=== PATIENT | male | born 1965 | race American Indian/Alaskan Native ===

== ENCOUNTER 2017-08-24 10:40 | Emergency (ER) | payer SELFPAY ==
--- NOTE | 2017-08-24 11:54 | Emergency Department Report ---
Chief Complaint: Dyspnea/Respdistress Stated Complaint: BOWEL OBSTRUCTION/PEDAL EDMA - HPI History of Present Illness: 52-year-old male presents with multiple complaints that include chest pain, shortness of breath, lower extremity swelling, abdominal pain with constipation. He has a history of hypertension, CHF. CHF diagnosed at [facility] in April but patient says he does not have any medications or follow-up. The chest pain, shortness of breath and edema have been going on since April or May "all day every day." He is a tobacco smoker. No PCP. - ROS Review of Systems: Review of systems: Patient is positive for chest pain, shortness of breath, lower extremity edema, abdominal discomfort/distention, constipation Patient is negative for fever, nausea, vomiting, back pain, diaphoresis. - Exam Vital Signs: Vital Signs 08/24/17 10:49 Temperature 97.5 F L Pulse Rate 95 H Respiratory 18 Rate Blood Pressure 131/74 O2 Sat by Pulse 95 Oximetry Physical Exam: Patient is calm. AAO x 3. Slightly coarse breath sounds but no tachypnea or accessory muscle use. Heart sounds normal Has visible 2-3+ pitting edema. Skin is warm and dry. No focal neurological deficits. MSE screening note: Focused history and physical exam performed. Due to findings the following was ordered: I ordered a CBC, CMP, serial troponins, BNP, coags, x-ray of the abdomen and chest, and EKG. The patient will need to be seen on the main ED side. ED Disposition for MSE Condition: Stable
--- NOTE | 2017-08-24 12:44 | XRay Report ---
ABDOMINAL SERIES: History: Abdominal pain, chest pain. Erect chest film demonstrates mild cardiomegaly and borderline pulmonary vascularity. The lungs are clear. There is no evidence of free air beneath the diaphragms. The gas pattern within the abdomen is unremarkable. There is no evidence of bowel dilatation, significant air-fluid levels, or masses. Organ shadows are unremarkable. IMPRESSION: Mild cardiomegaly. Unremarkable abdomen.
[2017-08-24 13:34] LABS: Basophils % (Auto) 0.4 % (0.0-1.8); Eosinophils # (Auto) 0.4 K/mm3 (0.0-0.4); Eosinophils % (Auto) 6.3 % (0.0-4.3); Hematocrit 42.4 % (35.5-45.6); Hemoglobin 13.4 gm/dl (11.8-15.2); Lymphocytes # (Auto) 1.8 K/mm3 (1.2-5.4); Lymphocytes % (Auto) 29.3 % (13.4-35.0); Mean Corpuscular HGB Conc 32 % (32-34); Mean Corpuscular Hemoglobin 27 pg (28-32); Mean Corpuscular Volume 85 fl (84-94); Monocytes # (Auto) 0.5 K/mm3 (0.0-0.8); Monocytes % (Auto) 7.4 % (0.0-7.3); Platelet Count 187 K/mm3 (140-440); Red Blood Count 4.98 M/mm3 (3.65-5.03); Red Cell Distribution Width 16.9 % (13.2-15.2)
[2017-08-24 13:50] LABS: INR 1.14 (0.87-1.13)
[2017-08-24 13:51] LABS: Partial Thromboplastin Time 32.7 Sec. (24.2-36.6)
[2017-08-24 13:55] LABS: Alanine Aminotransferase 15 units/L (7-56); Albumin 3.9 g/dL (3.9-5); BUN/Creatinine Ratio 24; Blood Urea Nitrogen 19 mg/dL (9-20); Hemolysis Index 13
[2017-08-24] MEDS ORDERED: LASIX IV ONE (15:24)
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
--- NOTE | 2017-08-24 16:26 | History and Physical Report ---
History of Present Illness Chief complaint: My legs are swollen History of present illness: 52 YO Male with HTN, HLD, CHF Unknown EF, Nicotine Dependence, Medication Noncompliance, Dietary noncompliance presents to ED for evaluation. Pt seen and evaluated in ED and found have CHF chronic BLE edema. Pt seen and evaluated in ED and treated with diuresis with improvement in symptoms. Pt found to have elevaated D Dimer but CTA chest was negative. Pt counseled regarding medicaton noncompliance, and dietary compliance, daily weight monitoring. Pt medically optimized and discharged home. Pt instructed to f/u pcp 1wk, cardiology 1wk. Past History Past Medical History: heart failure, hypertension, hyperlipidemia Past Surgical History: bowel surgery Social history: single, smoking Family history: diabetes, hypertension Medications and Allergies Allergies Allergy/AdvReac Type Severity Reaction Status Date / Time No Known Allergies Allergy Unverified 08/24/17 10:48 Home Medications Medication Instructions Recorded Confirmed Last Taken Type Amlodipine Besylate 10 mg PO ONCE 08/24/17 08/24/17 Unknown History Aspirin 325 mg PO ONCE 08/24/17 08/24/17 Unknown History Furosemide [Lasix] 20 mg PO QDAY #30 tablet 08/24/17 Unknown Rx Lasix mg 08/24/17 Unknown History Lisinopril [Zestril TAB] 5 mg PO QDAY #15 tablet 08/24/17 Unknown Rx Metoprolol [Lopressor TAB] 25 mg PO DAILY #15 tablet 08/24/17 Unknown Rx Potassium Chloride 10 meq PO QDAY #15 capsule.er 08/24/17 Unknown Rx Pravastatin 5 mg PO ONCE 08/24/17 08/24/17 Unknown History Simvastatin 20 mg PO DAILY #30 tablet 08/24/17 Unknown Rx Xanax 0.5 mg PO ONCE 08/24/17 08/24/17 Unknown History Zofran TAB 4 mg PO 08/24/17 Unknown History Review of Systems Constitutional: no weight loss, no weight gain, no fever, no chills Ears, nose, mouth and throat: no ear pain, no ear discharge, no tinnitis, no decreased hearing, no nose pain Cardiovascular: shortness of breath, no chest pain, no orthopnea, no palpitations, no rapid/irregular heart beat, no edema Respiratory: no cough, no cough with sputum, no excessive sputum, no hemoptysis Gastrointestinal: no nausea, no vomiting, no diarrhea, no constipation Genitourinary Male: no hematuria, no flank pain, no discharge, no urinary frequency, no urinary hesitancy Rectal: no pain, no incontinence, no bleeding Musculoskeletal: no neck stiffness, no neck pain, no shooting arm pain, no arm numbness/tingling, no low back pain Integumentary: no rash, no pruritis, no redness, no sores, no wounds Neurological: no head injury, no transient paralysis, no paralysis, no weakness , no parathesias, no numbness Psychiatric: no anxiety, no memory loss, no change in sleep habits, no sleep disturbances, no insomnia, no hypersomnia Endocrine: no cold intolerance, no heat intolerance, no polyphagia, no excessive thirst, no polydipsia, no polyuria Hematologic/Lymphatic: no easy bruising, no easy bleeding, no lymphedema Allergic/Immunologic: no urticaria, no allergic rhinitis, no wheezing Exam - Constitutional Vitals: Temp Pulse Resp BP Pulse Ox 97.5 F L 95 H 18 131/74 95 08/24/17 10:49 08/24/17 10:49 08/24/17 10:49 08/24/17 10:49 08/24/17 10:49 General appearance: Present: no acute distress, well-nourished - EENT Eyes: Present: PERRL ENT: hearing intact, clear oral mucosa - Neck Neck: Present: supple, normal ROM - Respiratory Respiratory effort: normal Respiratory: bilateral: CTA - Cardiovascular Heart Sounds: Present: S1 & S2. Absent: rub, click - Extremities Extremities: pulses symmetrical, No edema Extremity abnormal: edema Peripheral Pulses: within normal limits - Abdominal General gastrointestinal: Present: soft, non-tender, non-distended, normal bowel sounds Male genitourinary: Present: normal - Integumentary Integumentary: Present: clear, warm, dry - Musculoskeletal Musculoskeletal: gait normal, strength equal bilaterally - Psychiatric Psychiatric: appropriate mood/affect, intact judgment & insight - Neurologic Neurologic: CNII-XII intact, moves all extremities Results - Labs CBC & Chem 7: 08/24/17 12:35 08/24/17 12:35 Labs: Abnormal lab results 08/24/17 08/24/17 08/24/17 Range/Units 12:35 12:35 12:35 MCH 27 L (28-32) pg RDW 16.9 H (13.2-15.2) % Clare % (Auto) 7.4 H (0.0-7.3) % Eos % (Auto) 6.3 H (0.0-4.3) % PT 15.2 H (12.2-14.9) Sec. INR 1.14 H (0.87-1.13) D-Dimer (0-234) ng/mlDDU Total Bilirubin 2.10 H (0.1-1.2) mg/dL NT-Pro-B Natriuret Pep 2806 H (0-900) pg/mL 08/24/17 Range/Units 12:35 MCH (28-32) pg RDW (13.2-15.2) % Clare % (Auto) (0.0-7.3) % Eos % (Auto) (0.0-4.3) % PT (12.2-14.9) Sec. INR (0.87-1.13) D-Dimer 253.71 H (0-234) ng/mlDDU Total Bilirubin (0.1-1.2) mg/dL NT-Pro-B Natriuret Pep (0-900) pg/mL Assessment and Plan - Patient Problems (1) Noncompliance with medication regimen Status: Acute Plan to address problem: Pt counseled regarding medication noncompliance, Pt prescribed, TAINA-I, Beta jose raul, statin, lasix, and instructed to f/u pcp and cardiology with BP log, and to monitor daily weight, and to maintain 2gram sodium diet daily.
--- NOTE | 2017-08-24 18:10 | Cat Scan Report ---
FINAL REPORT EXAM: CT ANGIO CHEST HISTORY: dypsnea TECHNIQUE: Axial images were performed from the lung apices to the bases following IV contrast administration Comparison: None FINDINGS: Pipe Roller film demonstrates significant enlarged cardiac silhouette. There is trace effusion adjacent to the ascending aorta. Subpleural bleb formation and fibrosis, mild upper lobe predominant emphysema, and cyst formation. No pneumonia. There are multiple mildly enlarged mediastinal lymph nodes. There is bilateral axillary adenopathy, the largest on the right measuring 2 centimeters. Left hilar lymph node measures up to 2.2 centimeters. There is subcarinal adenopathy measuring up to 2.5 centimeters. Main pulmonary outflow tract, left and right pulmonary arteries show normal contrast enhancement without evidence of filling defect. There is trace right pleural effusion. Gallbladder is decompressed. The imaged upper abdomen is unremarkable. IMPRESSION: Significant cardiomegaly. Trace right pleural effusion. No acute pulmonary embolus. Mediastinal and hilar adenopathy, suggestive of neoplasm. Specifically, lymphoma. There is subpleural bleb formation, mild cystic change and mild pulmonary emphysema, upper lobe predominant without focal infiltrate.
[2017-08-24 18:27] VITALS: BP 114/56
== END 2017-08-24 18:32 | disposition admitted as inpatient to this hospital (09) ==
LOC: ED 10:40
DX: I11.0 Hypertensive heart disease with heart failure (principal); I50.9 Heart failure, unspecified; E78.00 Pure hypercholesterolemia, unspecified; F17.200 Nicotine dependence, unspecified, uncomplicated
CPT/HCPCS: 36415; 71275; 74022; 80053; 83880; 84484; 85025; 85379; 85610; 85730; 93005; 93010; 96374; 99285; J1940; Q9967